=== PATIENT | male | born 1965 | race Caucasian/White ===

== ENCOUNTER 2016-09-05 18:20 | Emergency (ER) | payer BC ==
[2016-09-05 19:19] VITALS: TEMP 98.6; BMI 33.7
[2016-09-05 19:37] LABS: AUTOMATED BASOPHIL 0.9 % (0-2); AUTOMATED EOSINOPHIL 0.5 % (0-5); AUTOMATED LYMPH 17.2 % (17-44); AUTOMATED MONOCYTE 7.3 % (3-10); AUTOMATED NEUTROPHIL 74.1 % (45-76); MPV 8.7 fL (7.4-10.4)
[2016-09-05 19:46] LABS: PARTIAL THROMB. TIME 27.8 SEC (22-35)
[2016-09-05 19:52] LABS: LEUKOCYTES/URINE NEG (NEGATIVE); NITRITE/URINE NEG (NEGATIVE); URINE OCCULT BLOOD NEG (NEG/TRACE); WBC/URINE 0-2 (0-2)
[2016-09-05 20:31] LABS: BLOOD UREA NITROGEN 12 MG/DL (9-20); CALCIUM 8.9 MG/DL (8.4-10.2); CALCULATED OSMOLALITY 263 MOs/Kg (270-290); CHLORIDE 102 mEq/L (98-107); GLUCOSE 112 MG/DL (70-99); SODIUM LEVEL 136 mEq/L (137-146); TOTAL PROTEIN 7.8 G/DL (6.3-8.2)
[2016-09-05] MEDS ORDERED: NS 1,000 ML IV ONE ×2 (21:05)
[2016-09-05] MEDS ORDERED: HYDROmorphone 1 MG INJECTION IV ONE (21:05)
[2016-09-05] MEDS ORDERED: ONDANSETRON HCL 4 MG/2 ML VIAL IV ONE (21:05)
[2016-09-05] MEDS ORDERED: SODIUM CHLORIDE 0.9% 3 ML FLUSH FLUSH PRN (21:05)
[2016-09-05] MEDS ORDERED: DIAZEPAM 10 MG/2 ML TUBEX IV ONE ×2 (21:05→22:41)
--- NOTE | 2016-09-05 21:08 | EDPRACDOC ---
- General Information Chief Complaint: Generalized Weakness Stated Complaint: NECK PAIN / NAUSEA / DIZZY / HIGH BP Time Seen by Provider: 09/05/16 21:04 Information Source: Patient Mode Of Arrival: Car Home Medications: Home Medications Olmesartan/Hydrochlorothiazide [Olmesartan-Hctz 40-25 mg Tab] 1 tab PO DAILY Diazepam [Valium] 5 mg PO TID #20 tablet 09/06/16 Oxycodone Immediate Release [Oxycodone Immediate Release (OxyIR)] 5 mg PO Q6H PRN #20 tab 09/06/16 Prednisone [Deltasone] 20 mg PO BID #12 tablet 09/06/16 Allergies/Adverse Reactions: Allergies Allergy/AdvReac Type Severity Reaction Status Date / Time No Known Allergies Allergy Verified 01/01/16 08:33 - History of Present 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 PT STATES HE IS ALSO HAVING N/V WITH LIGHT SENSITIVITY. Location: Reports: Generalized Pain Quality: Reports: Severe, Throbbing, Worst Headache of life Relevant History of: Reports: None Associated Signs and Symptoms: Reports: Occasional Headache, Nausea/Vomiting, Vision Changes (BLURRY AND LIGHT SENSITIVE) ED Past Medical History - History Reviewed Yes Nurses notes reviewed and agree except as marked Travel Outside of [place] in the Last 3 Months?: No - Patient Medical History Cardiac History: Reports: Hypertension Respiratory History: Denies: Pneumonia Psychological History: Denies: Depression Systemic History: Denies: Cancer - Family Medical History Reports: Hypertension (MOTHER), Diabetes (MOTHER). Denies: Cancer, Stroke, Cardiac Disorders - Social Medical History Smoking Status: Never smoker ETOH: None Substance Abuse: None Lives With: Spouse Lives In: Home EDM Review of Systems - Review of Systems ROS Negative Except as Marked: Yes All systems reviewed and were negative except as marked Constitutional: No Symptoms Reported. negative: Fever, Chills, Weakness, Fatigue, Loss of Appetite Eyes: Blurred Vision, Light Sensitive. negative: Double Vision, Discharge, Pain , Photophobia, Redness Ears: No Symptoms Reported. negative: Pain, Hearing Loss, Drainage, Ear Pulling Throat: No Symptoms Reported. negative: Pain, Swelling Nose: No Symptoms Reported. negative: Congestion, Bleeding, Discharge, Injection, Swelling, Deformity, Ecchymosis, Tender, Abrasion, Laceration Mouth: No Symptoms Reported. negative: Pain, Drooling Respiratory: No Symptoms Reported. negative: Cough, Brassy Cough, Barky Cough, Shortness of Breath, Wheezing, Hemoptysis Cardiovascular: No Symptoms Reported. negative: Chest Pain, Palpitations, Syncope, Edema, Orthopnea, PND, Skin Mottling, Cyanosis Gastrointestinal: No Symptoms Reported. negative: Pain, Constipation, Nausea, Vomiting, Diarrhea, Melena, Formula Intolerance Genitourinary: No Symptoms Reported. negative: Dysuria, Hematuria, Frequency, Discharge, Bleeding, Testicular Pain, Neurological: Headache. negative: Dizziness, Gait Difficulty, Numbness, Seizure , Speech Difficulty, Weakness Musculoskeletal: No Symptoms Reported. negative: Neck, Chestwall, Ribs, Back, Shoulder, Arm, Elbow, Forearm, Wrist, Hand, Pelvis, Hip, Femur, Knee, Leg, Ankle , Foot Integumentary: No Symptoms Reported. negative: Itching, Rash, Bruising, Wound Allergic/Immunologic: No Symptoms Reported. negative: Hives, Itching Hematologic: No Symptoms Reported. negative: Lymphadenopathy, Easy Bruising, Easy Bleeding Endocrine: No Symptoms Reported. negative: Weight Gain, Weight Loss Psychiatric: No Symptoms Reported. negative: Anxiety, Depression, Hallucinations, Insomnia, Suicidal - Physical Exam Constitutional: No apparent distress, Alert (Awake) Oriented to: Time, Person, Place Last recorded Vital Signs: Last Vital Signs Temp 98.6 F 09/05/16 19:14 Pulse 59 L 09/05/16 20:58 Resp 20 09/05/16 20:58 BP 158/97 09/05/16 20:58 Pulse Ox 96 09/05/16 20:58 Oxygen Pulse Oxygen Saturation 96 O2 Device Room Air Oxygen Flow Rate Fraction of Inspired Oxygen ( FIO2) - HEENT Head: Normal ( normocephalic) Eye Exam: Normal (PERRL, EOMI, Sclera white) Oropharynx: Normal (Pharynx:Moist without exudate,Gums-no swelling) Tympanic Membrane: Normal ENT EAC: Normal TMJ: Normal Nose: No Symptoms Reported (septum midline) Neck: Paraspinal Tenderness (RIGHT MODERATE TENDERNESS TO PALPATION) - Respiratory/Cardiovascular Respiratory: Normal - CTA (BBS clear to auscultation without adventitious sounds ) Cardiovascular: Normal (RRR without murmur, gallop or rub) - GI Auscultation: Normal (NABS) Palpation: Normal (Soft,No rebound or guarding, non distended) Tenderness: Non tender Robles's Sign: Negative - Bladder: Normal - Musculoskeletal Back: Normal (Non-Tender) Extremities: Normal (Normal tone, Pulses 2+ No cyanosis or edema, FROM) - Integumentary Skin: Normal, Warm, Dry Lymphatics: Normal (no adenopathy) - Neurologic Memory Impaired: Normal Motor Function: Normal (Normal tone, Pulses 2+ No cyanosis or edema, FROM) Cranial Nerve: Normal (CN II-X11 intact sensation, strength 5/5) Cerebellar: Normal Mood Description: Normal Perception: Normal - Differential Diagnosis Migraine, Hypertensive, Muscular Contraction, Hemorrhage-Epidural, Hemorrhage- Subarachnoid, Hemorrhage-Subdural, Acute Benign Cephalgia - Results 09/05/16 19:15 09/05/16 19:15 WBC 12.2 xk/uL (3.8-10.8) H 09/05/16 19:15 RBC 4.64 xM/uL (4.70-6.10) L 09/05/16 19:15 Hgb 13.8 g/dL (14.0-18.0) L 09/05/16 19:15 Hct 40.6 % (42-52) L 09/05/16 19:15 MCV 88 fL (80-94) 09/05/16 19:15 MCH 29.8 pg (27-32) 09/05/16 19:15 MCHC 34.0 g/dl (33-36) 09/05/16 19:15 RDW 14.3 % (11.5-14.5) 09/05/16 19:15 Plt Count 222 xk/uL (130-400) 09/05/16 19:15 MPV 8.7 fL (7.4-10.4) 09/05/16 19:15 Neut % (Auto) 74.1 % (45-76) 09/05/16 19:15 Lymph % (Auto) 17.2 % (17-44) 09/05/16 19:15 Sargent % (Auto) 7.3 % (3-10) 09/05/16 19:15 Eos % (Auto) 0.5 % (0-5) 09/05/16 19:15 Baso % (Auto) 0.9 % (0-2) 09/05/16 19:15 Absolute Neuts (auto) 9.03 xk/uL (1.7-8.2) H 09/05/16 19:15 Absolute Lymphs (auto) 2.07 xk/uL (0.65-4.75) 09/05/16 19:15 PT 10.0 SEC (9.2-11.2) 09/05/16 19:15 INR 1.0 09/05/16 19:15 APTT 27.8 SEC (22-35) 09/05/16 19:15 Sodium 136 mEq/L (137-146) L 09/05/16 19:15 Potassium 3.1 mEq/L (3.5-5.1) L 09/05/16 19:15 Chloride 102 mEq/L (98-107) 09/05/16 19:15 Carbon Dioxide 22 mMOL/L (22-33) 09/05/16 19:15 Anion Gap 15 mEq/L (8-16) 09/05/16 19:15 BUN 12 MG/DL (9-20) 09/05/16 19:15 Creatinine 0.80 MG/DL (0.66-1.25) 09/05/16 19:15 Estimated GFR (MDRD) > 60 mL/min (>=60) 09/05/16 19:15 Glucose 112 MG/DL (70-99) H 09/05/16 19:15 Calculated Osmolality 263 MOs/Kg (270-290) L 09/05/16 19:15 Calcium 8.9 MG/DL (8.4-10.2) 09/05/16 19:15 Total Bilirubin 0.6 MG/DL (0.2-1.3) 09/05/16 19:15 AST 28 IU/L (17-59) 09/05/16 19:15 ALT 32 IU/L (21-72) 09/05/16 19:15 Alkaline Phosphatase 77 IU/L (38-126) 09/05/16 19:15 Troponin I < 0.01 ng/mL (<.04) 09/05/16 19:15 Dse-P-Ktpvztjbzlw Pept 146 pg/mL (0-450) 09/05/16 19:15 Total Protein 7.8 G/DL (6.3-8.2) 09/05/16 19:15 Albumin 4.2 G/DL (3.5-5.0) 09/05/16 19:15 Urine Color Yellow 09/05/16 19:18 Urine Clarity Clear 09/05/16 19:18 Urine pH 5.0 (5.0-8.0) 09/05/16 19:18 Ur Specific [place] 1.025 (1.003-1.035) 09/05/16 19:18 Urine Protein Neg (NEG/TRACE) 09/05/16 19:18 Urine Glucose (UA) Neg (NEGATIVE) 09/05/16 19:18 Urine Ketones Neg (NEGATIVE) 09/05/16 19:18 Urine Occult Blood Neg (NEG/TRACE) 09/05/16 19:18 Urine Nitrite Neg (NEGATIVE) 09/05/16 19:18 Urine Bilirubin Neg (NEGATIVE) 09/05/16 19:18 Urine Urobilinogen <2.0 MG/DL (0-1) 09/05/16 19:18 Ur Leukocyte Esterase Neg (NEGATIVE) 09/05/16 19:18 Urine WBC 0-2 (0-2) 09/05/16 19:18 Urine Mucus Mod (NEG/OCC) H 09/05/16 19:18 Lab Results 09/05/16 09/05/16 09/05/16 19:18 19:15 19:15 WBC 12.2 H RBC 4.64 L Hgb 13.8 L Hct 40.6 L MCV 88 MCH 29.8 MCHC 34.0 RDW 14.3 Plt Count 222 MPV 8.7 Neut % (Auto) 74.1 Lymph % (Auto) 17.2 Sargent % (Auto) 7.3 Eos % (Auto) 0.5 Baso % (Auto) 0.9 Absolute Neuts (auto) 9.03 H Absolute Lymphs (auto) 2.07 PT 10.0 INR 1.0 APTT 27.8 Sodium Potassium Chloride Carbon Dioxide Anion Gap BUN Creatinine Estimated GFR (MDRD) Glucose Calculated Osmolality Calcium Total Bilirubin AST ALT Alkaline Phosphatase Troponin I Qcs-C-Jkldmdkdkzk Pept Total Protein Albumin Urine Color Yellow Urine Clarity Clear Urine pH 5.0 Ur Specific [place] 1.025 Urine Protein Neg Urine Glucose (UA) Neg Urine Ketones Neg Urine Occult Blood Neg Urine Nitrite Neg Urine Bilirubin Neg Urine Urobilinogen <2.0 Ur Leukocyte Esterase Neg Urine WBC 0-2 Urine Mucus Mod H 09/05/16 19:15 WBC RBC Hgb Hct MCV MCH MCHC RDW Plt Count MPV Neut % (Auto) Lymph % (Auto) Sargent % (Auto) Eos % (Auto) Baso % (Auto) Absolute Neuts (auto) Absolute Lymphs (auto) PT INR APTT Sodium 136 L Potassium 3.1 L Chloride 102 Carbon Dioxide 22 Anion Gap 15 BUN 12 Creatinine 0.80 Estimated GFR (MDRD) > 60 Glucose 112 H Calculated Osmolality 263 L Calcium 8.9 Total Bilirubin 0.6 AST 28 ALT 32 Alkaline Phosphatase 77 Troponin I < 0.01 Nlo-H-Zyzbohjsrtz Pept 146 Total Protein 7.8 Albumin 4.2 Urine Color Urine Clarity Urine pH Ur Specific [place] Urine Protein Urine Glucose (UA) Urine Ketones Urine Occult Blood Urine Nitrite Urine Bilirubin Urine Urobilinogen Ur Leukocyte Esterase Urine WBC Urine Mucus - Diagnostic Imaging CT HEAD/CSPINE Image interpreted by: Radiologist IMPRESSION: No acute abnormality head or cervical spine. Mild mucosal thickening right maxillary sinus. 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 Mild cervical degenerative change. CXR Image interpreted by: Radiologist IMPRESSION: No acute cardiopulmonary process seen. Decision Time to Discharge: 00:17 - Departure Disposition: Home Condition: Stable Final Diagnosis: Cervical paraspinal muscle spasm, Tension headache Instructions: Tension Headache (ED), Cervical Strain (ED) Education/Counseling Given To: Patient Education/Counseling Given Regarding: Diagnosis, Treatment, Prognosis, Follow Up Referrals: Glenys Camara PA [Primary Care Provider] - One Week Prescriptions: New Diazepam [Valium] 5 mg PO TID #20 tablet Oxycodone Immediate Release [Oxycodone Immediate Release (OxyIR)] 5 mg PO Q6H PRN #20 tab PRN Reason: Pain Prednisone [Deltasone] 20 mg PO BID #12 tablet No Action Olmesartan/Hydrochlorothiazide [Olmesartan-Hctz 40-25 mg Tab] 1 tab PO DAILY Additional Instructions: RETURN FOR WORSE OR DIFFERENT SYMPTOMS.
--- NOTE | 2016-09-05 21:19 | DIRPT ---
CLINICAL DATA: Acute onset of shortness of breath, neck pain, nausea, headache and dizziness. Initial encounter. EXAM: PORTABLE CHEST 1 VIEW COMPARISON: None. FINDINGS: The lungs are well-aerated and clear. There is no evidence of focal opacification, pleural effusion or pneumothorax. The cardiomediastinal silhouette is borderline normal in size. No acute osseous abnormalities are seen. IMPRESSION: No acute cardiopulmonary process seen. Electronically Signed By: Reagan Cruz M.D. On: 09/05/2016 21:16
--- NOTE | 2016-09-05 22:24 | DIRPT ---
CLINICAL DATA: Neck pain for 1 week. Headache today. No known injury. Initial encounter. EXAM: CT HEAD WITHOUT CONTRAST CT CERVICAL SPINE WITHOUT CONTRAST TECHNIQUE: Multidetector CT imaging of the head and cervical spine was performed following the standard protocol without intravenous contrast. Multiplanar CT image reconstructions of the cervical spine were also generated. COMPARISON: None. FINDINGS: CT HEAD FINDINGS There is no evidence of acute intracranial abnormality including hemorrhage, infarct, mass lesion, mass effect, midline shift or abnormal extra-axial fluid collection. No hydrocephalus or pneumocephalus. The calvarium is intact. Mild mucosal thickening in the right maxillary sinus is noted. Imaged paranasal sinuses and mastoid air cells are otherwise clear. Large osteoma in the frontal sinuses is identified. CT CERVICAL SPINE FINDINGS No cervical spine fracture or malalignment is seen. Mild loss of disc space height and endplate spurring are identified at C3-4 and C6-7. The facet joints are unremarkable. Paraspinous soft tissue structures appear normal. The lung apices are clear. IMPRESSION: No acute abnormality head or cervical spine. Mild mucosal thickening right maxillary sinus. 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 Mild cervical degenerative change. Electronically Signed By: Vladimir Carson M.D. On: 09/05/2016 22:21
[2016-09-05] MEDS ORDERED: DIPHENHYDRAMINE 50 MG/ML VIAL IV ONE (22:28)
[2016-09-05] MEDS ORDERED: KETOROLAC TROMETH 30 MG/ML VIAL IV ONE (22:28)
[2016-09-05] MEDS ORDERED: METOCLOPRAMIDE 10 MG/2 ML VIAL IV ONE (22:28)
[2016-09-06 00:34] VITALS: BP 150/81; PULSE 55
[2016-09-06] MEDS ORDERED: SODIUM CHLORIDE 0.9% 3 ML FLUSH FLUSH SCH (06:00)
== END 2016-09-06 00:32 | disposition home or self-care (01) ==
LOC: ED 18:20
DX: M62.838 Other muscle spasm (principal); G44.209 Tension-type headache, unspecified, not intractable; I10 Essential (primary) hypertension; Z79.899 Other long term (current) drug therapy
CPT/HCPCS: 36415; 70450; 71010; 72125; 80053; 81001; 83880; 84484; 85025; 85610; 85730; 93005; 96361; 96374; 96375; 96376; 99284; J1170; J1200; J1885; J2405; J2765; J3360